=== PATIENT | male | born 1960 | race American Indian/Alaskan Native ===

== ENCOUNTER 2017-01-01 07:47 | Inpatient (IN) | payer MEDICAID ==
[2017-01-01] MEDS ORDERED: DUONEB *Not for PRN Use IH ONE (08:13)
--- NOTE | 2017-01-01 08:34 | XRay Report ---
FINAL REPORT EXAM: XR CHEST 1V AP HISTORY: SOB TECHNIQUE: Chest, portable upright PRIORS: None. FINDINGS: There is some right infrahilar infiltrate. Interstitial thickening peripherally may reflect some interstitial edema. Correlate clinically. There is no pleural effusion or pneumothorax seen. Heart size is upper normal. IMPRESSION: Suspect right infrahilar infiltrate. Interstitial thickening may reflect mild interstitial edema. Correlate clinically.
[2017-01-01 08:43] LABS: Basophils % (Auto) 1.1 % (0.0-1.8); Eosinophils % (Auto) 4.4 % (0.0-4.3); Hematocrit 39.6 % (35.5-45.6); Mean Corpuscular HGB Conc 33 % (32-34); Mean Corpuscular Hemoglobin 29 pg (28-32); Mean Corpuscular Volume 88 fl (84-94); Platelet Count 233 K/mm3 (140-440); Red Blood Count 4.52 M/mm3 (3.65-5.03); Red Cell Distribution Width 15.2 % (13.2-15.2); White Blood Count 4.6 K/mm3 (4.5-11.0)
[2017-01-01 08:46] LABS: Anion Gap 15 mmol/L; BUN/Creatinine Ratio 16.66; Blood Urea Nitrogen 15 mg/dL (9-20); Calcium 8.3 mg/dL (8.4-10.2); Carbon Dioxide 27 mmol/L (22-30); Chloride 103.8 mmol/L (98-107); Glucose 105 mg/dL (75-100); Potassium 4.1 mmol/L (3.6-5.0); Sodium 142 mmol/L (137-145)
--- NOTE | 2017-01-01 08:51 | Emergency Department Report ---
HPI - General Chief Complaint: Dyspnea/Respdistress Time Seen by Provider: 01/01/17 08:10 - HPI HPI: This is a 56-year-old male presents to the emergency department from home with complaint of shortness of breath is been going on for the past 2-3 days. It worsens when he is trying to lay down flat. He has been trying to sleep with several pillows prop him up at night but says that does not provide much relief. He denies any chest pain, nausea, vomiting or fever. He does not have an inhaler or nebulizer and has not taken anything for his symptoms prior to presentation. He does have a history of congestive heart failure. He has a primary care physician in [place] and a division service manager in [facility]. No recent travel or sick contacts at home. ED Past Medical Hx - Past Medical History Previous Medical History?: Yes Hx Congestive Heart Failure: Yes - Surgical History Past Surgical History?: Yes Additional Surgical History: prostate - Social History Smoking Status: Current Every Day Smoker Substance Use Type: None ED Review of Systems ROS: Stated complaint: MO Other details as noted in HPI Comment: All other systems reviewed and negative Constitutional: denies: chills, fever Eyes: denies: eye pain, eye discharge, vision change ENT: denies: ear pain, throat pain Respiratory: orthopnea, shortness of breath Cardiovascular: denies: chest pain, edema Gastrointestinal: denies: abdominal pain, nausea, diarrhea Genitourinary: denies: urgency, dysuria Musculoskeletal: denies: back pain, joint swelling, arthralgia Skin: denies: rash, lesions Neurological: denies: headache, weakness, paresthesias Physical Exam - Physical Exam Vital Signs: Vital Signs 01/01/17 01/01/17 01/01/17 08:00 08:18 08:31 Temperature 97.5 F L Pulse Rate 88 Pulse Rate [ 75 78 Bilateral Upper Lobe] Respiratory 22 Rate Respiratory 18 18 Rate [Bilateral Upper Lobe] Blood Pressure 138/100 O2 Sat by Pulse 100 Oximetry Physical Exam: GENERAL: The patient is well-developed well-nourished. HENT: Normocephalic. Atraumatic. Patient has moist mucous membranes. EYES: Extraocular motions are intact. Pupils equal reactive to light bilaterally. NECK: Supple. Trachea is midline. CHEST/LUNGS: Coarse breath sounds without chest. There is tachypnea but no excessive muscle use. There is no respiratory distress noted. HEART/CARDIOVASCULAR: Regular. There is no tachycardia. There is no gallop rub or murmur. ABDOMEN: Abdomen is soft, nontender. Patient has normal bowel sounds. There is no abdominal distention. SKIN: Skin is warm and dry. NEURO: The patient is awake, alert, and oriented. The patient is cooperative. The patient has no focal neurologic deficits. The patient has normal speech. MUSCULOSKELETAL: There is no tenderness or deformity. There is no limitation range of motion. There is no evidence of acute injury. ED Course Vital Signs 01/01/17 01/01/17 01/01/17 08:00 08:18 08:31 Temperature 97.5 F L Pulse Rate 88 Pulse Rate [ 75 78 Bilateral Upper Lobe] Respiratory 22 Rate Respiratory 18 18 Rate [Bilateral Upper Lobe] Blood Pressure 138/100 O2 Sat by Pulse 100 Oximetry ED Medical Decision Making - Lab Data Result diagrams: 01/01/17 08:22 01/01/17 08:22 - EKG Data -: EKG Interpreted by Me EKG shows normal: sinus rhythm (with PVCs and fusion complexes), axis (left axis deviation), intervals, QRS complexes (left anterior-posterior block, LVH, Q waves to the anteroseptal leads), ST-T waves (T-wave inversions to the lateral and inferior leads) - EKG Data When compared to previous EKG there are: changes noted (new T-wave inversions to the lateral and inferior leads) Interpretation: other (sinus rhythm with PVCs and fusion complexes, left axis deviation, LVH, Q waves to the septal and anterior leads, T-wave inversions to the inferior and lateral leads) - Radiology Data Radiology results: report reviewed, image reviewed interpreted by me: Chest x-ray shows some mild cardiomegaly and some pulmonary vascular congestion. No obvious pneumonia. No pneumothorax. CT angiography of the chest does not show any signs of pulmonary embolism or dissection. There is mild CHF. - Medical Decision Making 56-year-old male presents with shortness of breath and orthopnea. No overt lower extremity edema. He does have coarse breath sounds and some tachypnea but no accessory muscle use. Chest x-ray appears consistent with mild CHF. BNP is greater than 3000. CT angiography was done secondary to elevated and equivocal d-dimer but no PE or dissection but also shows mild CHF. Given Lasix and aspirin. Will be admitted to the hospital for further evaluation and treatment. - Differential Diagnosis CHF, PE, SD, asthma, pneumonia Critical Care Time: No Critical care attestation.: If time is entered above; I have spent that time in minutes in the direct care of this critically ill patient, excluding procedure time. ED Disposition Clinical Impression: Dyspnea Qualifiers: Dyspnea type: shortness of breath Qualified Code(s): R06.02 - Shortness of breath; R06.00 - Dyspnea, unspecified; R06.01 - Orthopnea CHF (congestive heart failure) Qualifiers: Congestive heart failure type: unspecified congestive heart failure type Congestive heart failure chronicity: acute on chronic Qualified Code(s): I50.9 - Heart failure, unspecified Disposition: 09 OP ADMIT IP TO THIS HOSP Is pt being admited?: Yes Condition: Stable Time of Disposition: 11:04
[2017-01-01] MEDS ORDERED: NACL ONE (09:16)
--- NOTE | 2017-01-01 10:01 | Cat Scan Report ---
CTA CHEST: History: Shortness of breath. Technique: Helical CT following IV contrast. Pulmonary embolus protocol. Sagittal and coronal reformatted images. Rotational MIP images. Findings: Contrast bolus is satisfactory. No pulmonary embolus is identified. Mild cardiomegaly, mild pulmonary venous congestion and small layering bilateral pleural effusions are identified. The thyroid gland, tracheobronchial tree, esophagus, pericardium and aorta are unremarkable. No thoracic adenopathy or mass is detected. The bony thorax is intact. Impression: No pulmonary embolus is identified. Mild CHF.
[2017-01-01] MEDS ORDERED: BABY ASPIRIN PO ONE (10:15)
[2017-01-01] MEDS ORDERED: LASIX IV ONE (10:15)
[2017-01-01] MEDS ORDERED: ZOFRAN IV PRN (11:01)
[2017-01-01] MEDS ORDERED: TYLENOL PO PRN (11:01)
[2017-01-01] MEDS ORDERED: MILK OF MAGNESIA PO PRN (11:01)
[2017-01-01] MEDS ORDERED: DULCOLAX PR PRN (11:01)
--- NOTE | 2017-01-01 11:14 | History and Physical Report ---
History of Present Illness Date of examination: 01/01/17 Date of admission: 01/01/17 Chief complaint: SOB History of present illness: Patient is a 56 years old -[place] male known with heart failure who missed his diuretic in the last few days and started to have shortness of breath that worsened progressively and later associated orthopnea; also noticed increased bilateral leg swelling. There are no chest pain, diaphoresis, nausea , vomiting associated. 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 Past History Past Medical History: heart failure Past Surgical History: Other (prostate surgery) Social history: smoking, alcohol abuse, other (marijuana use) Family history: diabetes, hypertension, other (heart failure) Medications and Allergies Allergies Allergy/AdvReac Type Severity Reaction Status Date / Time No Known Allergies Allergy Verified 01/01/17 09:20 Active Meds: Active Medications Acetaminophen (Tylenol) 650 mg PO Q4H PRN PRN Reason: Pain MILD(1-3)/Fever >100.5/MARTINEZ Aspirin (Aspirin) 325 mg PO QDAY DARRICK Bisacodyl (Dulcolax) 10 mg ND QDAY PRN PRN Reason: Constipation unrelieved by MOM Carvedilol (Coreg) 3.125 mg PO BID DARRICK Enoxaparin Sodium (Lovenox) 40 mg SUB-Q QDAY DARRICK Furosemide (Lasix) 40 mg IV QDAY DARRICK Lisinopril (Zestril) 5 mg PO QDAY DARRICK Magnesium Hydroxide (Milk Of Magnesia) 30 ml PO Q4H PRN PRN Reason: Constipation Ondansetron HCl (Zofran) 4 mg IV Q8H PRN PRN Reason: N/V unrelieved by Reglan Review of Systems Constitutional: no weight loss, no weight gain, no fever, no chills Ears, nose, mouth and throat: no tinnitis, no decreased hearing, no nasal congestion, no sinus pressure, no epistaxis, no bleeding gums Cardiovascular: orthopnea, edema, shortness of breath, dyspnea on exertion, no chest pain, no palpitations, no syncope, no lightheadedness Respiratory: shortness of breath, dyspnea on exertion, no cough, no hemoptysis, no congestion, no wheezing Gastrointestinal: no abdominal pain, no nausea, no vomiting, no change in bowel habits Genitourinary Male: no dysuria, no hematuria, no flank pain, no discharge Rectal: no pain, no incontinence, no itching, no hemorrhoids Musculoskeletal: no arm numbness/tingling, no leg numbness/tingling, no muscle weakness, no muscle cramps Integumentary: no rash, no pruritis, no sores, no wounds Neurological: no head injury, no weakness, no parathesias, no numbness, no tingling, no syncope, no vertigo, no headaches Psychiatric: no anxiety, no memory loss, no depression, no difficulties concentrating Endocrine: no cold intolerance, no heat intolerance, no polydipsia, no polyuria Hematologic/Lymphatic: no easy bruising, no easy bleeding, no lymphadenopathy, no lymphedema Allergic/Immunologic: no urticaria, no wheezing, no persistent infections, no seasonal allergies Exam - Constitutional Vitals: Temp Pulse Resp BP Pulse Ox 97.5 F L 85 31 H 131/105 94 01/01/17 08:00 01/01/17 09:00 01/01/17 09:00 01/01/17 09:00 01/01/17 09:00 General appearance: Present: mild distress, well-nourished - EENT Eyes: Present: PERRL, EOM intact. Absent: scleral icterus, conjunctival injection ENT: hearing intact, clear oral mucosa, poor dentition, no oropharyngeal erythema - Neck Neck: Present: supple, normal ROM. Absent: masses or JVD - Respiratory Respiratory effort: labored Respiratory: bilateral: diminished, rales, negative: rhonchi, wheezing - Cardiovascular Rhythm: regular Heart Sounds: Present: S1 & S2. Absent: systolic murmur - Extremities Extremities: no ischemia Extremity abnormal: edema - Abdominal General gastrointestinal: Present: soft, non-tender, non-distended, normal bowel sounds Male genitourinary: Present: deferred - Rectal Rectal Exam: deferred - Integumentary Integumentary: Present: warm, dry. Absent: jaundice, rash - Musculoskeletal Musculoskeletal: strength equal bilaterally - Psychiatric Psychiatric: appropriate mood/affect, intact judgment & insight, memory intact, cooperative - Neurologic Neurologic: CNII-XII intact, no focal deficits Results - Labs CBC & Chem 7: 01/01/17 08:22 01/01/17 08:22 Labs: Abnormal lab results 01/01/17 01/01/17 01/01/17 Range/Units 08:13 08:22 08:22 [place] % (Auto) 10.4 H (0.0-7.3) % Eos % (Auto) 4.4 H (0.0-4.3) % Lymph # 0.7 L (1.2-5.4) K/mm3 D-Dimer 408.50 H (0-234) ng/mlDDU Glucose 105 H (75-100) mg/dL Calcium 8.3 L (8.4-10.2) mg/dL NT-Pro-B Natriuret Pep (0-900) pg/mL 01/01/17 Range/Units 08:22 [place] % (Auto) (0.0-7.3) % Eos % (Auto) (0.0-4.3) % Lymph # (1.2-5.4) K/mm3 D-Dimer (0-234) ng/mlDDU Glucose (75-100) mg/dL Calcium (8.4-10.2) mg/dL NT-Pro-B Natriuret Pep 3392 H (0-900) pg/mL - Imaging and Cardiology EKG: image reviewed (T wave inversion V4-6, Q wave DIII, V1-3) Chest x-ray: image reviewed CT scan - chest: report reviewed (no PE, mild CHF) Assessment and Plan 1. Acute on chronic likely systolic failure Start BB, ACEI and diuresis with IV Lasix Monitor I/Os Obtain cardiac enzymes and echocardiogram to evaluate LV function Monitor renal function and electrolytes 2. Tobacco abuse Counseled regarding importance of quitting 3. Occasional marijuana use Counseled regarding importance of quitting 4. DVT prophylaxis Lovenox
[2017-01-01] MEDS ORDERED: PNEUMOVAX 23 IM ONE (12:29)
[2017-01-01] MEDS ORDERED: Fluarix Quad 2017-2018(36 MOS+) IM ONE (12:29)
[2017-01-01] MEDS: LASIX IV SCH (12:40)
[2017-01-01] MEDS: COREG PO SCH ×2 (12:46→21:53)
[2017-01-01] MEDS: ZESTRIL PO SCH (12:47)
--- NOTE | 2017-01-02 06:18 | Admit Criteria Form ---
Admission Criteria Documentation: HEART FAILURE: COMMON COMPLICATIONS Clinical Indications for Inpatient Care ([place]/check or initial the applicable condition/criteria): Ongoing inpatient care may be indicated for heart failure with 1 or more of the following (1)(2)(3)(4)(5)(6)(7)(8): [ ]I. New-onset heart failure [ ]II. Acute cardiac ischemia causing or associated with failure [ ]III. Ongoing need for care for primary condition requiring frequent therapy adjustments because of changes in cardiac function (eg, drug dosage changes for drugs that are renally metabolized) [X ]IV. Complications of heart failure, including 1 or more of the following: [ ]a) Hemodynamic instability [ ]b) Pericardial effusion [ ]c) Symptomatic pleural effusion(16) [ ]d) Hypoxemia [ ]e) Tachypnea [X ]f) Dyspnea [ ]g) Syncope [ ]h) Altered mental status [ ]i) Acute renal insufficiency that is severe (reduction of more than 50% in estimated glomerular filtration rate from baseline) or progressive (reduction of more than 25% in estimated glomerular filtration rate from baseline, with creatinine continuing to rise) [ ]j) Debilitating anasarca (eg tissue breakdown with infection, inability to void due to edema)(E) (17) [ ]k) Clinically significant metabolic abnormalities due to heart failure (e.g., new-onset metabolic acidosis) Extended stay may be needed until ALL of the following are present(1)(3)(18)(41) (55): [ ]a) Hemodynamic stability [ ]b) Stable and effective diuretic regimen established (or patient on stable dialysis regimen if in chronic renal failure) [ ]c) Volume status acceptable on oral medication [ ]d) Breathing comfortably at rest [ ]e) Saturation of arterial oxygen greater than 90% or at acceptable baseline [ ]f) Pulmonary edema absent or improved [ ]g) Peripheral or sacral edema absent or improved [ ]h) Renal function stable and manageable at a lower level of care [ ]i) Complications (e.g., pleural effusion) resolved or manageable at a lower level of care [ ]j) Patient or caregiver has received written discharge instructions or educational material addressing activity level, diet, discharge medications, follow-up appointment, weight monitoring, and what to do if symptoms worsen. (56)(57)(58) The original [facility] [employer] content created by Toni De Leon has been revised. The portions of the content which have been revised are identified through the use of italic text or in bold, and Toni De Leon has neither reviewed nor approved the modified material.All other unmodified content is copyright [employer]. Please see references footnoted in the original [employer].In edition 2017 Admission Criteria Met: Yes
--- NOTE | 2017-01-02 07:26 | Progress Note ---
<ALISHA BAUMAN - Last Filed: 01/02/17 13:52> Assessment and Plan Assessment and plan: Acute on chronic systolic failure Echocardiogram with EF 15-20%, LV size is moderate to severely dilated, LA severely dilated, mild AR, mild MR, trace TR. Lexiscan MPI stress test in AM for further evaluation Start BB, ACEI and diuresis with IV Lasix Monitor I/Os restriction 1200 ml in 24 hrs and daily weights low-sodium/ Cardiac diet Closely monitor electrolytes Cardiology consulted Elevated DDimer Chest CTA negative for PE Tobacco abuse Smoking cessation counseling done patient advised strongly to quit. Occasional marijuana use Counseled regarding importance of quitting DVT prophylaxis Lovenox History Interval history: Patient has uneventful overnight. Hospitalist Physical - Constitutional Vitals: Temp Pulse Resp BP Pulse Ox 98.4 F 77 18 121/96 98 01/02/17 04:00 01/02/17 05:00 01/02/17 04:00 01/02/17 04:00 01/02/17 04:00 General appearance: Present: mild distress, well-nourished - EENT Eyes: Present: PERRL ENT: hearing intact - Neck Neck: Present: supple - Respiratory Respiratory effort: normal Respiratory: bilateral: rales - Cardiovascular Rhythm: regular Heart Sounds: Present: S1 & S2 - Extremities Extremities: no ischemia Peripheral Pulses: within normal limits - Abdominal General gastrointestinal: soft, non-tender - Integumentary Integumentary: Present: clear, warm, dry - Psychiatric Psychiatric: appropriate mood/affect - Neurologic Neurologic: CNII-XII intact - Allied Health Allied health notes reviewed: nursing Results - Labs CBC & Chem 7: 01/01/17 08:22 01/02/17 06:32 Labs: Laboratory Last Values WBC 4.6 K/mm3 (4.5-11.0) 01/01/17 08:22 RBC 4.52 M/mm3 (3.65-5.03) 01/01/17 08:22 Hgb 13.0 gm/dl (11.8-15.2) 01/01/17 08:22 Hct 39.6 % (35.5-45.6) 01/01/17 08:22 MCV 88 fl (84-94) 01/01/17 08:22 MCH 29 pg (28-32) 01/01/17 08:22 MCHC 33 % (32-34) 01/01/17 08:22 RDW 15.2 % (13.2-15.2) 01/01/17 08:22 Plt Count 233 K/mm3 (140-440) 01/01/17 08:22 Lymph % (Auto) 15.1 % (13.4-35.0) 01/01/17 08:22 [place] % (Auto) 10.4 % (0.0-7.3) H 01/01/17 08:22 Eos % (Auto) 4.4 % (0.0-4.3) H 01/01/17 08:22 Baso % (Auto) 1.1 % (0.0-1.8) 01/01/17 08:22 Lymph # 0.7 K/mm3 (1.2-5.4) L 01/01/17 08:22 [place] # 0.5 K/mm3 (0.0-0.8) 01/01/17 08:22 Eos # 0.2 K/mm3 (0.0-0.4) 01/01/17 08:22 Baso # 0.1 K/mm3 (0.0-0.1) 01/01/17 08:22 Seg Neutrophils % 69.0 % (40.0-70.0) 01/01/17 08:22 Seg Neutrophils # 3.1 K/mm3 (1.8-7.7) 01/01/17 08:22 D-Dimer 408.50 ng/mlDDU (0-234) H 01/01/17 08:13 Sodium 142 mmol/L (137-145) 01/01/17 08:22 Potassium 4.1 mmol/L (3.6-5.0) 01/01/17 08:22 Chloride 103.8 mmol/L (98-107) 01/01/17 08:22 Carbon Dioxide 27 mmol/L (22-30) 01/01/17 08:22 Anion Gap 15 mmol/L 01/01/17 08:22 BUN 15 mg/dL (9-20) 01/01/17 08:22 Creatinine 0.9 mg/dL (0.8-1.5) 01/01/17 08:22 Estimated GFR > 60 ml/min 01/01/17 08:22 BUN/Creatinine Ratio 16.66 % 01/01/17 08:22 Glucose 105 mg/dL (75-100) H 01/01/17 08:22 Calcium 8.3 mg/dL (8.4-10.2) L 01/01/17 08:22 Magnesium 1.70 mg/dL (1.7-2.3) 01/01/17 08:22 Troponin T < 0.010 ng/mL (0.00-0.029) 01/01/17 08:22 NT-Pro-B Natriuret Pep 3392 pg/mL (0-900) H 01/01/17 08:22 <JH CONDON - Last Filed: 01/03/17 02:40> Assessment and Plan Assessment and plan: I saw and evaluated the patient. I agree with the findings and the plan of care as documented in the Nurse Practitioner's~note, with the following corrections and additions. Patient has acute on chronic CHF. He feels better. cardiology following. Hospitalist Physical - Constitutional Vitals: Temp Pulse Resp BP Pulse Ox 98.5 F 76 18 98/84 100 01/02/17 23:10 01/02/17 23:10 01/02/17 23:10 01/02/17 23:10 01/02/17 23:10 Results - Labs CBC & Chem 7: 01/01/17 08:22 01/02/17 06:32 Labs: Laboratory Last Values WBC 4.6 K/mm3 (4.5-11.0) 01/01/17 08:22 RBC 4.52 M/mm3 (3.65-5.03) 01/01/17 08:22 Hgb 13.0 gm/dl (11.8-15.2) 01/01/17 08:22 Hct 39.6 % (35.5-45.6) 01/01/17 08:22 MCV 88 fl (84-94) 01/01/17 08:22 MCH 29 pg (28-32) 01/01/17 08:22 MCHC 33 % (32-34) 01/01/17 08:22 RDW 15.2 % (13.2-15.2) 01/01/17 08:22 Plt Count 233 K/mm3 (140-440) 01/01/17 08:22 Lymph % (Auto) 15.1 % (13.4-35.0) 01/01/17 08:22 [place]cd[place] % (Auto) 10.4 % (0.0-7.3) H 01/01/17 08:22 Eos % (Auto) 4.4 % (0.0-4.3) H 01/01/17 08:22 Baso % (Auto) 1.1 % (0.0-1.8) 01/01/17 08:22 Lymph # 0.7 K/mm3 (1.2-5.4) L 01/01/17 08:22 [place]cd[place] # 0.5 K/mm3 (0.0-0.8) 01/01/17 08:22 Eos # 0.2 K/mm3 (0.0-0.4) 01/01/17 08:22 Baso # 0.1 K/mm3 (0.0-0.1) 01/01/17 08:22 Seg Neutrophils % 69.0 % (40.0-70.0) 01/01/17 08: Seg Neutrophils # 3.1 K/mm3 (1.8-7.7) 01/01/17 08:22 D-Dimer 408.50 ng/mlDDU (0-234) H 01/01/17 08:13 Sodium 144 mmol/L (137-145) 01/02/17 06:32 Potassium 3.4 mmol/L (3.6-5.0) L 01/02/17 06:32 Chloride 101.9 mmol/L (98-107) 01/02/17 06:32 Carbon Dioxide 27 mmol/L (22-30) 01/02/17 06:32 Anion Gap 19 mmol/L 01/02/17 06:32 BUN 13 mg/dL (9-20) 01/02/17 06:32 Creatinine 1.1 mg/dL (0.8-1.5) 01/02/17 06:32 Estimated GFR > 60 ml/min 01/02/17 06:32 BUN/Creatinine Ratio 11.81 % 01/02/17 06:32 Glucose 95 mg/dL (75-100) 01/02/17 06:32 Calcium 8.4 mg/dL (8.4-10.2) 01/02/17 06:32 Magnesium 1.70 mg/dL (1.7-2.3) 01/01/17 08:22 Troponin T < 0.010 ng/mL (0.00-0.029) 01/01/17 08:22 NT-Pro-B Natriuret Pep 3392 pg/mL (0-900) H 01/01/17 08:22
[2017-01-02 08:16] LABS: Anion Gap 19 mmol/L; BUN/Creatinine Ratio 11.81; Blood Urea Nitrogen 13 mg/dL (9-20); Calcium 8.4 mg/dL (8.4-10.2); Carbon Dioxide 27 mmol/L (22-30); Chloride 101.9 mmol/L (98-107); Glucose 95 mg/dL (75-100); Potassium 3.4 mmol/L (3.6-5.0); Sodium 144 mmol/L (137-145)
[2017-01-02] MEDS: LASIX IV SCH (09:28)
[2017-01-02] MEDS: ASPIRIN PO SCH (09:28)
[2017-01-02] MEDS: LOVENOX SUB-Q SCH (09:28)
[2017-01-02] MEDS: ZESTRIL PO SCH (09:28)
[2017-01-02] MEDS: COREG PO SCH ×2 (09:28→22:13)
--- NOTE | 2017-01-02 10:44 | Consultation ---
History of Present Illness Consult date: 01/02/17 Requesting physician: JH CONDON Consult reason: congestive heart failure History of present illness: The pt is a 56 YO male with a past medical history significant for HF, enlarged prostate, ETOH use (drinks 2 shots of vodka daily), tobacco use (smokes 2-3 cigars daily) and marijuana use (smokes on weekends). He is previously unknown to our practice. He states he is followed by a fifth grade teacher in [facility]. He presented with complaints of shortness of breath, orthopnea, PND and bilateral lower extremity edema for 3 days prior to arrival. He denies any chest pain, palpitations, nausea, vomiting, diaphoresis, dizziness or syncope. He reports that he has a history of heart failure and his last known ejection fraction was 50%. Past History Past Medical History: heart failure Past Surgical History: Other (prostate surgery) Social history: smoking, alcohol abuse, other (marijuana use) Family history: diabetes, hypertension, other (heart failure) Medications and Allergies Allergies Allergy/AdvReac Type Severity Reaction Status Date / Time No Known Allergies Allergy Verified 01/01/17 09:20 Home Medications Medication Instructions Recorded Confirmed Last Taken Type ALPRAZolam [Xanax TAB] 2 mg PO TID 01/02/17 01/02/17 Unknown History Aspirin [Aspirin BABY CHEW TAB] 81 mg PO QDAY 01/02/17 01/02/17 Unknown History Carvedilol [Coreg] 6.25 mg PO BID 01/02/17 01/02/17 Unknown History Finasteride [Proscar] 5 mg PO BID 01/02/17 01/02/17 Unknown History Furosemide [Lasix] 20 mg PO QDAY 01/02/17 01/02/17 Unknown History Lisinopril [Zestril TAB] 10 mg PO QDAY 01/02/17 01/02/17 Unknown History Active Meds: Active Medications Acetaminophen (Tylenol) 650 mg PO Q4H PRN PRN Reason: Pain MILD(1-3)/Fever >100.5/MARTINEZ Aspirin (Aspirin) 325 mg PO QDAY DARRICK Last Admin: 01/02/17 09:28 Dose: 325 mg Bisacodyl (Dulcolax) 10 mg MT QDAY PRN PRN Reason: Constipation unrelieved by MOM Carvedilol (Coreg) 3.125 mg PO BID [facility] Last Admin: 01/02/17 09:28 Dose: 3.125 mg Enoxaparin Sodium (Lovenox) 40 mg SUB-Q QDAY [facility] Last Admin: 01/02/17 09:28 Dose: 40 mg Furosemide (Lasix) 40 mg IV QDAY [facility] Last Admin: 01/02/17 09:28 Dose: 40 mg Influenza Virus Vaccine Quadrival (Fluarix Quad [id number](36 Mos+)) 0.5 ml IM .ONCE ONE Stop: 01/02/17 12:01 Lisinopril (Zestril) 5 mg PO QDAY [facility] Last Admin: 01/02/17 09:28 Dose: 5 mg Magnesium Hydroxide (Milk Of Magnesia) 30 ml PO Q4H PRN PRN Reason: Constipation Ondansetron HCl (Zofran) 4 mg IV Q8H PRN PRN Reason: N/V unrelieved by Reglan Pneumococcal Polyvalent Vaccine (Pneumovax 23) 0.5 ml IM .ONCE ONE Stop: 01/02/17 12:01 Review of Systems Constitutional: no weight loss, no weight gain, no fever, no chills, no sweats Ears, nose, mouth and throat: no ear pain, no nose pain, no sinus pressure, no sinus pain Cardiovascular: orthopnea, edema, shortness of breath, dyspnea on exertion, paroxysmal nocturnal dyspnea, leg edema, no chest pain, no palpitations, no rapid/irregular heart beat, no syncope, no lightheadedness, no high blood pressure Respiratory: no cough, no congestion, no wheezing, no pain on inspiration Gastrointestinal: no abdominal pain, no nausea, no vomiting, no diarrhea, no constipation, no change in bowel habits Genitourinary Male: no dysuria, no hematuria, no flank pain, no discharge, no urinary frequency, no urinary hesitancy Musculoskeletal: no neck stiffness, no neck pain, no shooting arm pain, no arm numbness/tingling, no low back pain, no shooting leg pain, no leg numbness/ tingling, no redness of joints Integumentary: no rash, no pruritis, no redness, no sores, no wounds Neurological: no paralysis, no weakness, no parathesias, no numbness, no tingling, no seizures, no syncope Endocrine: no cold intolerance, no heat intolerance Hematologic/Lymphatic: no easy bruising, no easy bleeding, no lymphadenopathy Allergic/Immunologic: no urticaria, no wheezing, no persistent infections Physical Examination Vital Signs Temp Pulse Resp BP Pulse Ox 97.5 F L 88 22 138/100 100 01/01/17 08:00 01/01/17 08:00 01/01/17 08:00 01/01/17 08:00 01/01/17 08:00 General appearance: no acute distress HEENT: Positive: PERRL, Normocephaly, Mucus Membranes Moist Neck: Positive: neck supple, trachea midline Cardiac: Positive: Reg Rate and Rhythm, S1/S2 Lungs: Positive: clear to auscultation Neuro: Positive: Grossly Intact, Cranial Nerve 2-12 Intact Abdomen: Positive: Unremarkable, Soft, Active Bowel Sounds. Negative: Tender Skin: Positive: Clear. Negative: Rash, Wound Musculoskeletal: No Fluid Collection, No Pain, Normal Range of Motion Extremities: Absent: edema Results 01/01/17 08:22 01/02/17 06:32 Comprehensive Metabolic Panel 01/02/17 Range/Units 06:32 Sodium 144 (137-145) mmol/L Potassium 3.4 L (3.6-5.0) mmol/L Chloride 101.9 (98-107) mmol/L Carbon Dioxide 27 (22-30) mmol/L BUN 13 (9-20) mg/dL Creatinine 1.1 (0.8-1.5) mg/dL Glucose 95 (75-100) mg/dL Calcium 8.4 (8.4-10.2) mg/dL - Imaging and Cardiology Echo: pending EKG: image reviewed EKG interpretations - Telemetry EKG Rhythm: Sinus Rhythm - EKG Sinus rhythms and dysrhythmias: sinus rhythm Chamber hypertrophy or enlargement: left ventricular hypertro Myocardial infarction: septal OR (old age or ind Assessment and Plan Assessment: Acute systolic heart failure Dilated CMP - EF 15-20% Elevated DDimer - chest CTA negative for PE EtOH use / tobacco use / marijuana use - cessation encouraged. Plan: Echo reviewed - EF 15-20%, LV size is moderate to severely dilated, LA severely dilated, mild AR, mild MR, trace TR. Continue present cardiac regimen. Plan for lexiscan MPI stress test in AM for further evaluation of CMP etiology, although suspect 2/2 alcohol. NPO after MN. Assessment and plan reviewed with patient at bedside. The patient has been seen in conjunction with Dr. Guardado who agrees with the assessment and plan of care.
[2017-01-02] MEDS ORDERED: Fluarix Quad 2017-2018(36 MOS+) IM ONE (12:00)
[2017-01-02] MEDS ORDERED: PNEUMOVAX 23 IM ONE (12:00)
[2017-01-03] MEDS ORDERED: K-DUR PO SCH (06:00)
[2017-01-03 06:53] LABS: Anion Gap 15 mmol/L; BUN/Creatinine Ratio 23.63; Blood Urea Nitrogen 26 mg/dL (9-20); Calcium 8.5 mg/dL (8.4-10.2); Carbon Dioxide 29 mmol/L (22-30); Chloride 98.5 mmol/L (98-107); Glucose 97 mg/dL (75-100); Potassium 3.9 mmol/L (3.6-5.0); Sodium 139 mmol/L (137-145)
--- NOTE | 2017-01-03 07:33 | Progress Note ---
Hospitalist Physical - Constitutional Vitals: Temp Pulse Resp BP Pulse Ox 98.7 F 83 18 118/91 99 01/03/17 03:15 01/03/17 05:00 01/03/17 03:15 01/03/17 03:15 01/03/17 03:15 General appearance: Present: mild distress, well-nourished Results - Labs CBC & Chem 7: 01/01/17 08:22 01/03/17 06:19 Labs: Laboratory Last Values WBC 4.6 K/mm3 (4.5-11.0) 01/01/17 08:22 RBC 4.52 M/mm3 (3.65-5.03) 01/01/17 08:22 Hgb 13.0 gm/dl (11.8-15.2) 01/01/17 08:22 Hct 39.6 % (35.5-45.6) 01/01/17 08:22 MCV 88 fl (84-94) 01/01/17 08:22 MCH 29 pg (28-32) 01/01/17 08:22 MCHC 33 % (32-34) 01/01/17 08:22 RDW 15.2 % (13.2-15.2) 01/01/17 08:22 Plt Count 233 K/mm3 (140-440) 01/01/17 08:22 Lymph % (Auto) 15.1 % (13.4-35.0) 01/01/17 08:22 [place] % (Auto) 10.4 % (0.0-7.3) H 01/01/17 08:22 Eos % (Auto) 4.4 % (0.0-4.3) H 01/01/17 08:22 Baso % (Auto) 1.1 % (0.0-1.8) 01/01/17 08:22 Lymph # 0.7 K/mm3 (1.2-5.4) L 01/01/17 08:22 [place] # 0.5 K/mm3 (0.0-0.8) 01/01/17 08:22 Eos # 0.2 K/mm3 (0.0-0.4) 01/01/17 08:22 Baso # 0.1 K/mm3 (0.0-0.1) 01/01/17 08:22 Seg Neutrophils % 69.0 % (40.0-70.0) 01/01/17 08:22 Seg Neutrophils # 3.1 K/mm3 (1.8-7.7) 01/01/17 08:22 D-Dimer 408.50 ng/mlDDU (0-234) H 01/01/17 08:13 Sodium 139 mmol/L (137-145) 01/03/17 06:19 Potassium 3.9 mmol/L (3.6-5.0) 01/03/17 06:19 Chloride 98.5 mmol/L (98-107) 01/03/17 06:19 Carbon Dioxide 29 mmol/L (22-30) 01/03/17 06:19 Anion Gap 15 mmol/L 01/03/17 06:19 BUN 26 mg/dL (9-20) H 01/03/17 06:19 Creatinine 1.1 mg/dL (0.8-1.5) 01/03/17 06:19 Estimated GFR > 60 ml/min 01/03/17 06:19 BUN/Creatinine Ratio 23.63 % 01/03/17 06:19 Glucose 97 mg/dL (75-100) 01/03/17 06:19 Calcium 8.5 mg/dL (8.4-10.2) 01/03/17 06:19 Magnesium 1.70 mg/dL (1.7-2.3) 01/01/17 08:22 Troponin T < 0.010 ng/mL (0.00-0.029) 01/01/17 08:22 NT-Pro-B Natriuret Pep 3392 pg/mL (0-900) H 01/01/17 08:22
[2017-01-03] MEDS ORDERED: LEXISCAN IV ONE (08:32)
--- NOTE | 2017-01-03 09:30 | Progress Note ---
Assessment and Plan Assessment: Acute systolic heart failure - nearing/at euvolemia. Dilated CMP - EF 15-20%; suspect 2/2 alcohol abuse. Elevated DDimer - chest CTA negative for PE EtOH use / tobacco use / marijuana use - cessation encouraged. Plan: Convert IV lasix to PO, 40mg daily. Proceed with lexiscan MPI stress test this AM. Await findings. Assessment and plan reviewed with patient at bedside. The patient has been seen in conjunction with Dr. Ankit Randolph who agrees with the assessment and plan of care. Subjective Date of service: 01/03/17 Principal diagnosis: HF; CMP Interval history: Pt seen in stress lab. No complaints. States SOB resolved. VSS. Objective Last Vital Signs Temp 98.7 F 01/03/17 03:15 Pulse 83 01/03/17 05:00 Resp 18 01/03/17 03:15 BP 118/91 01/03/17 03:15 Pulse Ox 99 01/03/17 03:15 - Physical Examination General: Appears Well, No Apparent Distress HEENT: Positive: PERRL, Normocephaly, Mucus Membranes Moist Neck: Positive: neck supple, trachea midline Cardiac: Positive: Reg Rate and Rhythm, S1/S2 Lungs: Positive: clear to auscultation Neuro: Positive: Grossly Intact, Cranial Nerve 2-12 Intact Abdomen: Positive: Unremarkable, Soft, Active Bowel Sounds. Negative: Tender Skin: Positive: Clear. Negative: Rash, Wound Musculoskeletal: No Fluid Collection, No Pain, Normal Range of Motion Extremities: Absent: edema - Labs and Meds Comprehensive Metabolic Panel 01/03/17 Range/Units 06:19 Sodium 139 (137-145) mmol/L Potassium 3.9 (3.6-5.0) mmol/L Chloride 98.5 (98-107) mmol/L Carbon Dioxide 29 (22-30) mmol/L BUN 26 H (9-20) mg/dL Creatinine 1.1 (0.8-1.5) mg/dL Glucose 97 (75-100) mg/dL Calcium 8.5 (8.4-10.2) mg/dL - Imaging and Cardiology EKG: image reviewed Echo: report reviewed (EF 15-20%, LV size is moderate to severely dilated, LA severely dilated, mild AR, mild MR, trace TR.) - Telemetry EKG Rhythm: Sinus Rhythm - EKG Sinus rhythms and dysrhythmias: sinus rhythm Chamber hypertrophy or enlargement: left ventricular hypertro Myocardial infarction: septal ND (old age or ind
--- NOTE | 2017-01-03 12:00 | Event Note ---
Date: 01/03/17 Lexiscan MPI stress test this AM negative for ischemia, fixed inferior wall defect, EF 22%. Currently stable cardiac status. Pt may discharge home on current cardiac regimen. Recommend pt to follow up with established magnesium mill operator in [facility] or in our office with Annalise Lara NP, within 1-2 weeks of hospital discharge ([phone] ). Dena ROGERS NP / DR. GUTIERREZ
--- NOTE | 2017-01-03 12:16 | Discharge Summary ---
Providers - Providers Date of Admission: 01/01/17 11:42 Date of discharge: 01/03/17 Attending physician: JH CONDON 01/02/17 08:13 Consult to Cardiology [CONS] Routine Consulting Provider: EYAL ACOSTA Reason For Exam: CHF exacerbation Primary care physician: FLIGHT FOLLOWER Hospitalization Condition: Good Hospital course: Patient is a 56 years old -L[place] male known with heart failure who missed his diuretic in the last few days and started to have shortness of breath that worsened progressively and later associated orthopnea; also noticed increased bilateral leg swelling. Patient was diagnosis with acute on chronic systolic heart failure, hypertension, d-dimer, tobacco and marijuana abuse. ACS was ruled out, stress test normal MPI negative for ischemia, fixed inferior wall defect, EF 22%. negative cardiac enzymes, ECGs shows normal sinus rythm, CXR was wnl and CTA with no risk for pulmonary embolism. Patient shortness of breath and lower extremity probably from acute on chronic congestive systolic heart failure. He was treated with diuretic and antihypertensive medications. Patient is clinically improved and stable for discharge. Tobacco and marijuana abuse, smoking cessation counseling done patient strongly advised to quit. Patient agreed upon course of action. Patient recommend to follow up with established parking technician in [facility] or in [facility] office with Annalise Lara NP, within 1-2 weeks of hospital discharge. Also patient advised to follow-up with his primary care provider. Discharge diagnosis. Acute on chronic systolic failure Elevated D-Dimer Hypertension Tobacco abuse Occasional marijuana use Disposition: DC-01 TO HOME OR SELFCARE Core Measure Documentation - Palliative Care Palliative Care/ Comfort Measures: Not Applicable - Core Measures Any of the following diagnoses?: none Exam - Constitutional Vitals: Temp Pulse Resp BP Pulse Ox 98.7 F 86 18 110/74 99 01/03/17 03:15 01/03/17 10:05 01/03/17 03:15 01/03/17 10:05 01/03/17 03:15 General appearance: Present: no acute distress - EENT Eyes: Present: PERRL ENT: hearing intact - Neck Neck: Present: supple - Respiratory Respiratory effort: normal Respiratory: bilateral: CTA - Cardiovascular Rhythm: regular Heart Sounds: Present: S1 & S2 - Extremities Extremities: no ischemia Peripheral Pulses: within normal limits - Abdominal General gastrointestinal: Present: soft, non-tender Male genitourinary: Present: deferred - Rectal Rectal Exam: deferred - Integumentary Integumentary: Present: clear, warm, dry - Musculoskeletal Musculoskeletal: strength equal bilaterally - Psychiatric Psychiatric: appropriate mood/affect - Neurologic Neurologic: CNII-XII intact - Allied Health Allied health notes reviewed: nursing Plan Activity: no restrictions Weight Bearing Status: Weight Bear as Tolerated Diet: low fat, low cholesterol, low salt Follow up with: PRIMARY CARE,MD [Primary Care Provider] - 3-5 Days Prescriptions: Aspirin [Aspirin BABY CHEW TAB] 81 mg PO QDAY 60 Days Carvedilol [Coreg] 3.125 mg PO BID 60 Days Furosemide [Lasix] 20 mg PO QDAY #60 tablet Lisinopril [Zestril TAB] 10 mg PO QDAY 60 Days Lisinopril [Zestril] 5 mg PO QDAY 60 Days
[2017-01-03] MEDS ORDERED: LASIX PO SCH (13:00)
[2017-01-03] MEDS: ASPIRIN PO SCH (13:01)
[2017-01-03] MEDS: ZESTRIL PO SCH (13:01)
[2017-01-03] MEDS: COREG PO SCH (13:02)
[2017-01-03] MEDS: LOVENOX SUB-Q SCH (13:03)
[2017-01-03 13:38] VITALS: BP 119/74
[2017-01-03] MEDS ORDERED: K-DUR PO ONE (14:00)
--- NOTE | 2017-01-04 02:43 | Treadmill Report ---
STRESS THALLIUM REPORT Resting myocardial perfusion images after injecting technetium revealed dilated left ventricle and diminished radioisotope activity in the inferior wall region. Gated scan revealed ejection fraction of 22%. The left ventricle is dilated and diffusely hypocontractile. IMPRESSION: 1. This test is negative for ischemia. 2. Dilated left ventricle with very low ejection fraction of 22%. JOB# [id number] NATE/NTS
--- NOTE | 2017-01-06 10:22 | Query- Dyspnea ---
Velma Limon____Katharine Date:____01/06/17 Aircraft Delivery Checker/CDS:____Anabell / Markel Phone#:___[phone] Exercise your independent professional judgment when responding to query. Questions asked do not imply a particular answer is desired or expected. We greatly appreciate your clarification on this issue. Clinical Documentation States: 56 year old male was admitted on 01/01/17. The H&P (Dr. Mercado) states" Patient is a 56 years old -Vietnamese male known with heart failure who missed his diuretic in the last few days and started to have shortness of breath " The hospitalist progress note (Dr. Alcantar 01/02/17) states " Assessment and plan: Acute on chronic systolic failure " Clinical Findings Show: Respiratory rate: 41 O2 SAT: 80% O2 2L/min Please clarify if the patient had any of the following conditions based on the above clinical findings: [x ] Respiratory Failure [x ] Acute [ ] Acute on Chronic [ ] Chronic [ ] Respiratory failure due to trauma [ ] Acute Respiratory Distress Syndrome [ ] Other: [ ] Unable to determine [ ] Comment/Explanation: Present on Admission: [x ] Yes (Y) [ ] Clinically undeterminable (W) [ ] No (N) Please also document response in your Progress Notes and/or Discharge Summary and indicate if the condition was present on admission. LUDY
== END 2017-01-03 12:25 | disposition home or self-care (01) | DRG 291 ==
LOC: ED 07:47 → 4A 11:42
PROVIDERS: ADMIT Internal Medicine; ATTEND Internal Medicine
PROC: 3E0234Z Introduction of Serum, Toxoid and Vaccine into Muscle, Percutaneous Approach (ICD-10-PCS; principal; 2017-01-02)
DX: I11.0 Hypertensive heart disease with heart failure (principal); J96.00 Acute respiratory failure, unspecified whether with hypoxia or hypercapnia; I50.23 Acute on chronic systolic (congestive) heart failure; F17.200 Nicotine dependence, unspecified, uncomplicated; F10.10 Alcohol abuse, uncomplicated; I42.0 Dilated cardiomyopathy; F12.10 Cannabis abuse, uncomplicated; Z71.6 Tobacco abuse counseling; Z82.49 Family history of ischemic heart disease and other diseases of the circulatory system; Z83.3 Family history of diabetes mellitus; Z23 Encounter for immunization
CPT/HCPCS: 36415; 71010; 71275; 78452; 80048; 83735; 83880; 84484; 85025; 85379; 90686; 90732; 93005; 93010; 93017; 93306; 94640; 94760; 99406; A9502; J1650; J1940; J2785; Q9967